=== PATIENT | male | born 1995 | race Caucasian/White ===

== ENCOUNTER 2020-11-07 13:09 | Emergency (ER) | payer OTHER ==
[2020-11-07] MEDS ORDERED: BACTRIM DS TAB1 EACH PO (14:24)
== END 2020-11-07 20:34 ==
LOC: FER 13:09
DX: S80.862A Insect bite (nonvenomous), left lower leg, initial encounter (principal); L03.116 Cellulitis of left lower limb; W57.XXXA Bitten or stung by nonvenomous insect and other nonvenomous arthropods, initial encounter
CPT/HCPCS: 99283